=== PATIENT | male | born 1980 | race African-American/Black ===

== ENCOUNTER 2017-10-16 01:33 | Emergency (ER) | payer SELFPAY ==
[2017-10-16 01:54] LABS: ADD MAN DIFF? NO
[2017-10-16 01:56] LABS: BASO % 1 % (0-3); EOS % 1 % (0-3); HEMATOCRIT 37.1 % (39.0-53.0); HEMOGLOBIN 12.7 g/dL (13.0-17.5); LYMPH # 1.9 x10^3/uL (1.0-4.8); LYMPH % 42 % (24-48); MEAN CORPUSCULAR HEMOGLOBIN 32 pg (25-35); MEAN CORPUSCULAR HGB CONC 34 g/dL (31-37); MEAN CORPUSCULAR VOLUME 94 fL (79-100); MONO # 0.3 x10^3/uL (0.0-1.1); MONO % 8 % (0-9); NEUT # 2.3 x10^3uL (1.8-7.7); NEUT % 50 % (31-73); PLATELET COUNT 310 x10^3/uL (140-400); RED BLOOD COUNT 3.95 x10^6/uL (4.30-5.70); RED CELL DISTRIBUTION WIDTH 14.1 % (11.5-14.5); WHITE BLOOD COUNT 4.6 x10^3/uL (4.0-11.0)
[2017-10-16 02:04] LABS: ANION GAP 8 (6-14); BLOOD UREA NITROGEN 9 mg/dL (8-26); BUN/CREATININE RATIO 13 (6-20); CALCIUM 9.1 mg/dL (8.5-10.1); CARBON DIOXIDE 31 mmol/L (21-32); CHLORIDE 105 mmol/L (98-107); CREATININE 0.7 mg/dL (0.7-1.3); GFR 125.5; GLUCOSE 100 mg/dL (70-99); POTASSIUM 3.5 mmol/L (3.5-5.1); SODIUM 144 mmol/L (136-145)
[2017-10-16 02:08] LABS: ETHANOL 288 mg/dL (0-10)
[2017-10-16 02:10] LABS: ALBUMIN 3.9 g/dL (3.4-5.0); ALBUMIN/GLOBULIN RATIO 1.1 (1.0-1.7); ALK PHOS 109 U/L (46-116); ALT (SGPT) 26 U/L (16-63); AST (SGOT) 27 U/L (15-37); MAGNESIUM 2.2 mg/dL (1.8-2.4); TOTAL BILIRUBIN 0.3 mg/dL (0.2-1.0); TOTAL PROTEIN 7.6 g/dL (6.4-8.2)
[2017-10-16] MEDS: diphenhydrAMINE 50 MG/ML VIAL IVP (02:45)
[2017-10-16] MEDS: PROMETHAZINE 12.5 MG in IV NORMAL SALINE 50ML 50 ML IV (02:45)
[2017-10-16] MEDS: IV NORMAL SALINE 1000ML BAG 1,000 ML IV ×2 (02:45→04:00)
[2017-10-16] MEDS: KETOROLAC 30 MG/ML INJ. IV (02:45)
== END 2017-10-16 05:00 | disposition home or self-care (01) ==
LOC: ER 01:33
DX: R51 Headache (principal); F10.10 Alcohol abuse, uncomplicated; F12.10 Cannabis abuse, uncomplicated
CPT/HCPCS: 36415; 70450; 80053; 83735; 85025; 96361; 96365; 96375; 99285-25; G0480; J1200; J1885; J2550; J7030

== ENCOUNTER 2018-07-13 19:19 | Emergency (ER) | payer SELFPAY ==
[~2018-07-13] VITALS: Ht 182.9 cm; Wt 63.5 kg
[2018-07-13 19:19] VITALS: BP 144/76
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
== END 2018-07-13 19:50 | disposition home or self-care (01) ==
LOC: ER 19:19
DX: R45.1 Restlessness and agitation (principal); F16.10 Hallucinogen abuse, uncomplicated; F10.20 Alcohol dependence, uncomplicated
CPT/HCPCS: 99283

== ENCOUNTER 2018-10-10 16:42 | Emergency (ER) | payer SELFPAY ==
[~2018-10-10] VITALS: Ht 182.9 cm; Wt 63.5 kg
[2018-10-10 16:55] VITALS: BP 121/65
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
== END 2018-10-10 17:07 | disposition home or self-care (01) ==
LOC: ER 16:42
DX: F10.929 Alcohol use, unspecified with intoxication, unspecified (principal); Y90.9 Presence of alcohol in blood, level not specified
CPT/HCPCS: 99281

== ENCOUNTER 2018-11-06 23:32 | Emergency (ER) | payer SELFPAY ==
[2018-11-07 02:11] LABS: ALBUMIN 4.6 g/dL (3.4-5.0); CALCIUM 9.2 mg/dL (8.5-10.1); CREATININE 0.7 mg/dL (0.7-1.3); GFR 151.1; TOTAL BILIRUBIN 0.3 mg/dL (0.2-1.0); TOTAL PROTEIN 8.2 g/dL (6.4-8.2)
[2018-11-07 02:12] LABS: DIRECT BILIRUBIN 0.1 mg/dL (0.0-0.2); POTASSIUM 3.2 mmol/L (3.5-5.1)
[2018-11-07 02:13] LABS: BASO % 1 % (0-3); EOS % 0 % (0-3); HEMOGLOBIN 12.8 g/dL (13.0-17.5); LYMPH # 2.3 x10^3/uL (1.0-4.8); LYMPH % 32 % (24-48); MEAN CORPUSCULAR HEMOGLOBIN 31 pg (25-35); MEAN CORPUSCULAR HGB CONC 33 g/dL (31-37); MEAN CORPUSCULAR VOLUME 93 fL (79-100); MONO # 0.5 x10^3/uL (0.0-1.1); MONO % 7 % (0-9); NEUT # 4.4 x10^3uL (1.8-7.7); NEUT % 60 % (31-73); PLATELET COUNT 287 x10^3/uL (140-400); RED BLOOD COUNT 4.18 x10^6/uL (4.30-5.70); RED CELL DISTRIBUTION WIDTH 14.9 % (11.5-14.5); WHITE BLOOD COUNT 7.3 x10^3/uL (4.0-11.0)
[2018-11-07 02:21] LABS: BILIRUBIN,URINE NEGATIVE (NEG); CLARITY,URINE CLEAR; COLOR,URINE YELLOW; NITRITE,URINE NEGATIVE (NEG); PROTEIN,URINE NEGATIVE (NEG-TRACE); UROBILINOGEN,URINE 0.2 mg/dL (0.2 mg/dL)
[2018-11-07 02:24] LABS: BARBITURATES NEG (NEG); BENZODIAZEPINES NEG (NEG); CANNABINOIDS POS (NEG); COCAINE NEG (NEG); METHADONE NEG (NEG); OPIATES NEG (NEG); PHENCYCLIDINE POS (NEG)
[2018-11-07 02:25] LABS: AMPHETAMINE/METHAMPHETAMINE NEG (NEG)
[2018-11-07 02:31] LABS: BACTERIA,URINE 0 /HPF (0-FEW); RBC,URINE OCC /HPF (0-2); SQUAMOUS EPITHELIAL CELL,UR FEW /LPF; WBC,URINE OCC /HPF (0-4)
[2018-11-07 07:30] VITALS: BP 118/66
== END 2018-11-07 07:35 | disposition home or self-care (01) ==
LOC: ER 23:32
DX: F10.129 Alcohol abuse with intoxication, unspecified (principal); F16.10 Hallucinogen abuse, uncomplicated; Y90.8 Blood alcohol level of 240 mg/100 ml or more
CPT/HCPCS: 36415; 80048; 80076; 80307; 81001; 85025; 99284; G0480

== ENCOUNTER 2018-11-18 04:04 | Emergency (ER) | payer SELFPAY ==
[~2018-11-18] VITALS: Ht 170.2 cm; Wt 63.5 kg
[2018-11-18 04:16] VITALS: BP 102/54
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
[2018-11-18] MEDS ORDERED: Percogesic PO (05:54)
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
[2018-11-18] MEDS ORDERED: KETOROLAC 60 MG/2 ML VIAL. IM ONE (06:30)
--- NOTE | 2018-11-18 07:42 | RAD ---
KNEE RIGHT 4V History: FELL ON FACE & RIGHT KNEE. Comparison: None. Findings: 4 views right knee are submitted. No acute fracture or dislocation is identified by radiographs. Impression: 1. No acute osseous abnormality is identified. Electronically signed by: Landon Cook MD (11/18/2018 7:39 AM) [facility]
== END 2018-11-18 06:10 | disposition home or self-care (01) ==
LOC: ER 04:04
DX: S09.8XXA Other specified injuries of head, initial encounter (principal); S89.81XA Other specified injuries of right lower leg, initial encounter; F10.20 Alcohol dependence, uncomplicated; Y90.9 Presence of alcohol in blood, level not specified; W10.8XXA Fall (on) (from) other stairs and steps, initial encounter; Y93.89 Activity, other specified; Y92.89 Other specified places as the place of occurrence of the external cause; Y99.8 Other external cause status
CPT/HCPCS: 70450; 72125; 73564; 96372; 99284; J1885

== ENCOUNTER 2020-11-04 04:33 | Emergency (ER) | payer SELFPAY ==
[~2020-11-04] VITALS: Ht 170.2 cm; Wt 59.0 kg
[~2020-11-04 04:33] MED LIST: Percogesic PO
[2020-11-04 05:05] LABS: BASO % 0 % (0-3); EOS # 0.1 x10^3/uL (0.0-0.7); EOS % 1 % (0-3); HEMATOCRIT 36.1 % (39.0-53.0); HEMOGLOBIN 12.3 g/dL (13.0-17.5); LYMPH # 1.2 x10^3/uL (1.0-4.8); LYMPH % 14 % (24-48); MEAN CORPUSCULAR HEMOGLOBIN 32 pg (25-35); MEAN CORPUSCULAR HGB CONC 34 g/dL (31-37); MEAN CORPUSCULAR VOLUME 95 fL (79-100); MONO # 0.7 x10^3/uL (0.0-1.1); MONO % 9 % (0-9); NEUT # 6.5 x10^3/uL (1.8-7.7); NEUT % 76 % (31-73); PLATELET COUNT 249 x10^3/uL (140-400); RED BLOOD COUNT 3.79 x10^6/uL (4.30-5.70); RED CELL DISTRIBUTION WIDTH 14.8 % (11.5-14.5); WHITE BLOOD COUNT 8.6 x10^3/uL (4.0-11.0)
[2020-11-04] MEDS: FAMOTIDINE 20 MG/2 ML VIAL IVP ONE (05:06)
[2020-11-04] MEDS: MULTIVIT INFUSN,ADULT 4,VIT K 10 ML, THIAMINE INJ 100 MG, FOLIC ACID INJ 1 MG in IV NOR... IV ONE (05:06)
[2020-11-04 05:21] LABS: CALCIUM 8.9 mg/dL (8.5-10.1); CREATININE 0.7 mg/dL (0.7-1.3); GFR 149.6; POTASSIUM 3.5 mmol/L (3.5-5.1)
[2020-11-04 05:23] LABS: ACETAMIN < 2 mcg/ml (10-30); ETHANOL 16 mg/dL (0-10); SALIC 3.9 mg/dL (2.8-20.0)
[2020-11-04 05:26] LABS: ALBUMIN 3.7 g/dL (3.4-5.0); ALBUMIN/GLOBULIN RATIO 1.1 (1.0-1.7); TOTAL BILIRUBIN 0.3 mg/dL (0.2-1.0); TOTAL PROTEIN 7.2 g/dL (6.4-8.2)
[2020-11-04] MEDS ORDERED: fentaNYL PF VIAL 100 MCG/2 ML VIAL IV ONE (05:30)
--- NOTE | 2020-11-04 05:38 | RAD ---
XR CHEST 1V Clinical History: Reason: SOA / Spl. Instructions: / History: Technique: AP view of the chest was obtained at 11/04/2020 4:57 AM. Comparison: None. Findings: The cardiomediastinal silhouette is normal. The pulmonary vasculature is normal. The lungs and pleura l margins are clear. Impression: No evidence of an acute cardiopulmonary process. Electronically signed by: Lopez Hager III, MD (11/04/2020 5:35 AM) [facility]
--- NOTE | 2020-11-04 05:43 | EKG ---
[facility] [address] [place] [address] Test Date: 2020-11-04 Test Time: 04:52:58 Pat Name: ELIAS FUENTES Department: Room: Gender: M [employer] Worker: : 1980 Requested By: MISHA PARK Order Number: [id number] Reading MD: Measurements Intervals [place] Rate: 84 P: 66 NH: 176 QRS: 62 QRSD: 88 T: 41 QT: 366 QTc: 436 Interpretive Statements SINUS RHYTHM OTHERWISE NORMAL ECG RI6.02 No previous ECG available for comparison
[2020-11-04 06:21] LABS: BILIRUBIN,URINE NEGATIVE (NEG); CLARITY,URINE CLEAR; COLOR,URINE YELLOW; NITRITE,URINE NEGATIVE (NEG); PH,URINE 5.5 (<5.0-8.0); PROTEIN,URINE NEGATIVE (NEG-TRACE); UROBILINOGEN,URINE 0.2 mg/dL (0.2 mg/dL)
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
[2020-11-04 06:28] LABS: BARBITURATES NEG (NEG); BENZODIAZEPINES POS (NEG); CANNABINOIDS POS (NEG); COCAINE NEG (NEG); METHADONE NEG (NEG); OPIATES NEG (NEG); PHENCYCLIDINE POS (NEG)
[2020-11-04 06:29] LABS: AMPHETAMINE/METHAMPHETAMINE NEG (NEG)
[2020-11-04 06:35] LABS: BACTERIA,URINE 0 /HPF (0-FEW); RBC,URINE 0 /HPF (0-2); WBC,URINE 0 /HPF (0-4)
[2020-11-04 08:39] VITALS: BP 100/62
== END 2020-11-04 10:00 | disposition home or self-care (01) ==
LOC: ER 04:33
DX: F10.20 Alcohol dependence, uncomplicated (principal); Y90.0 Blood alcohol level of less than 20 mg/100 ml; Z20.822 Contact with and (suspected) exposure to COVID-19; R06.02 Shortness of breath
CPT/HCPCS: 36415; 71045; 80053; 80307; 80329; 81001; 82553; 83690; 83735; 84484; 85025; 87426; 93005; 96365; 96375; 99285; C9803; G0480; J3411; J3490; J7030; U0003; U0005